=== PATIENT | female | born 1985 | race African-American/Black ===

== ENCOUNTER 2021-10-27 09:28 | Emergency (ER) | payer BC ==
[2021-10-27] MEDS ORDERED: Ondansetron PF 4 MG/2 ML Vial ONE (10:26)
[2021-10-27 10:33] LABS: #Basophils 0.1 10x3/uL (0.0-0.2); #Monocytes 0.7 10x3/uL (0.0-1.1); #Neutrophils 7.1 10x3/uL (1.5-8.4); %Basophils 0.9 % (0.0-2.0); %Eosinophils 0.3 % (0.0-6.0); %Lymphocytes 11.6 % (18.0-47.0); %Monocytes 7.6 % (0.0-10.0); %Neutrophils 79.2 % (40.0-75.0); Hemoglobin 11.2 g/dL (12.0-15.5); Mean Corpuscular HGB CONC 34.6 g/dL (32.0-36.0); Mean Corpuscular Hemoglobin 27.4 pg (27.0-33.0); Mean Corpuscular Volume 79.2 fl (81.6-98.3); Mean Platelet Volume 10.5 fl (7.4-10.4); Platelet Count 262 10x3/uL (150-450); RBC Distribution Width 13.2 % (11.5-14.5); Red Blood Cell (RBC) Count 4.09 10x6/uL (3.90-5.03)
[2021-10-27 10:47] LABS: Actual Bicarbonate (HCO3v) 21 mEq/L (22-28); Base Excess -3.4 mEq/L (-2.0 to +3.0); Calcium, Ionized (venous) 1.14 mmol/L (1.16-1.32); Chloride (VBG) 102 mmol/L (98-106); Hemoglobin (Hb) 12.1 g/dL (11.7-15.5); Potassium (VBG) 3.36 mmol/L (3.70-5.30); Puncture Site Other Site; RapidComm Collect By LAB; Sodium 132.9 mmol/L (133-146); pH (venous) 7.38 (7.32-7.43)
[2021-10-27 11:13] LABS: ALT (SGPT) 156 U/L (8-55); AST (SGOT) 75 U/L (5-34); Albumin 3.5 g/dL (3.5-5.0); Alkaline Phosphatase 106 U/L (40-110); Anion Gap 13 mmol/L (10-20); BUN (Urea Nitrogen) 9 mg/dL (7.0-18.7); Calc. Creatinine Clearance 0 mL/min (70-130); Calcium 8.6 mg/dL (7.8-10.44); Carbon Dioxide 22 mmol/L (22-29); Chloride 103 mmol/L (98-107); Globulin 2.6 g/dL (2.4-3.5); Glucose 192 mg/dL (70-105); Potassium 3.4 mmol/L (3.5-5.1); Protein, Total 6.1 g/dL (6.0-8.3); Sodium 135 mmol/L (136-145)
[2021-10-27 12:35] LABS: Bilirubin Neg (Negative); Blood, Urine Negative (Negative); Clarity Cloudy (Clear); Glucose, Urine (Dipstick) >=1000 mg/dL (Negative); Ketone, Urine Negative (Negative); Leukocyte Negative (Negative); Nitrite Negative (Negative); Protein, Urine (Dipstick) Negative (Neg-Trace); Specific Gravity, Urine 1.005 (1.002-1.036); Urobilinogen Normal mg/dL (Less than 2)
[2021-10-27] MEDS ORDERED: Promethazine HCl 25 MG/ML VIAL ONE (13:31)
== END 2021-10-27 14:48 | disposition home or self-care (01) ==
LOC: CSHERS 09:28
DX: O99.281 Endocrine, nutritional and metabolic diseases complicating pregnancy, first trimester (principal); E86.0 Dehydration; O21.9 Vomiting of pregnancy, unspecified; O10.011 Pre-existing essential hypertension complicating pregnancy, first trimester; Z3A.10 10 weeks gestation of pregnancy
CPT/HCPCS: 36415; 80053; 81003; 82010; 82805; 85025; 96374; 96375; J2405; J2550

== ENCOUNTER 2022-05-05 18:00 | Inpatient (IN) | payer BC ==
[2022-05-05] MEDS ORDERED: Lidocaine 1% (PF) 30 ML VIAL SC PRN (21:42)
[2022-05-05] MEDS ORDERED: Ondansetron PF 4 MG/2 ML Vial IVP PRN (21:42)
[2022-05-05] MEDS ORDERED: HYDROcodone/Acetaminophen 5/325 mg Tablet PO PRN ×2 (21:42)
[2022-05-05] MEDS ORDERED: Ibuprofen 800 MG TAB PO PRN (21:42)
[2022-05-05] MEDS ORDERED: Misoprostol 100 MCG TAB VAG SCH (21:42)
[2022-05-05] MEDS ORDERED: hydrALAZINE 20 MG/ML VIAL SLOW IVP PRN (21:42)
[2022-05-05] MEDS ORDERED: Promethazine HCl 25 MG/ML VIAL IM PRN (21:42)
[2022-05-05 21:56] VITALS: BMI 29.7
[2022-05-05] MEDS ORDERED: NS w/ Oxytocin 30 units 500 ML IV SCH ×2 (22:00)
[2022-05-05] MEDS: Lactated Ringer's 1,000 ML IV SCH (23:06)
[2022-05-05 23:18] LABS: Hemoglobin 11.1 g/dL (12.0-15.5); Mean Corpuscular HGB CONC 33.7 g/dL (32.0-36.0); Mean Corpuscular Hemoglobin 25.5 pg (27.0-33.0); Mean Corpuscular Volume 75.5 fl (81.6-98.3); Mean Platelet Volume 11.3 fl (7.4-10.4); Platelet Count 301 10x3/uL (150-450); RBC Distribution Width 13.9 % (11.5-14.5); Red Blood Cell (RBC) Count 4.36 10x6/uL (3.90-5.03); White Blood Cell (WBC) Count 5.9 10x3/uL (3.5-10.5)
[2022-05-05] MEDS: Misoprostol 100 MCG TAB VAG SCH (23:31)
[2022-05-05 23:46] LABS: SARS-CoV-2 NAA Rapid Test Not Detected (NotDetected)
[2022-05-06 01:48] LABS: Hep B Surf Ag Non-Reactive S/CO (NonReactive)
[2022-05-06 01:49] LABS: Syphilis Antibody Nonreactive (Nonreactive); Syphilis Antibody Index 0.03 S/CO (<1.00 Non-Reactive)
[2022-05-06] MEDS: Misoprostol 100 MCG TAB VAG SCH ×2 (02:57→06:48)
[2022-05-06] MEDS: Butorphanol Tartrate 1 MG/ML VIAL SLOW IVP PRN ×2 (02:58→06:49)
[2022-05-06] MEDS: Lactated Ringer's 1,000 ML IV SCH (06:41)
[2022-05-06] MEDS ORDERED: NIFEdipine XL 60 MG TAB PO SCH (06:45)
[2022-05-06] MEDS ORDERED: Fentanyl 2 mcg/Bup 0.1% Cadd 100 ML ONE (09:06)
[2022-05-06] MEDS ORDERED: Moisturizing Cream (Eucerin) 113 GM JAR TOP PRN (11:20)
[2022-05-06] MEDS ORDERED: diphenhydrAMINE 50 MG/ML VIAL IVP PRN (11:20)
[2022-05-06] MEDS ORDERED: Promethazine HCl 25 MG/ML VIAL IM PRN (11:20)
[2022-05-06] MEDS ORDERED: Naloxone HCl 0.4 mg/ml Vial IVP PRN ×2 (11:20)
[2022-05-06] MEDS ORDERED: Acetaminophen 325 MG TAB PO PRN (11:20)
[2022-05-06] MEDS ORDERED: ePHEDrine Sulfate 50 MG/10 ML VIAL SLOW IVP PRN (11:20)
[2022-05-06] MEDS ORDERED: Communication Order-Pharmacy FS SCH (11:30)
[2022-05-06] MEDS ORDERED: Lactated Ringer's 500 ML IV PRN (11:44)
[2022-05-06] MEDS: Ondansetron PF 4 MG/2 ML Vial IVP PRN (16:16)
[2022-05-06] MEDS: Fentanyl 2 mcg/Bupivacaine 0.1% Cassette 100 ML EPIDURAL SCH (18:19)
[2022-05-07] MEDS: Fentanyl 2 mcg/Bupivacaine 0.1% Cassette 100 ML EPIDURAL SCH (02:48)
[2022-05-07] MEDS ORDERED: Fentanyl 100 MCG/2 ML VIAL ONE (07:26)
[2022-05-07] MEDS ORDERED: Ondansetron PF 4 MG/2 ML Vial ONE (07:55)
[2022-05-07] MEDS: Ondansetron PF 4 MG/2 ML Vial IVP PRN (07:58)
[2022-05-07] MEDS: Misoprostol 200 MCG TAB ONE ×2 (08:42→15:42)
[2022-05-07] MEDS ORDERED: Misoprostol 200 MCG TAB PR SCH (09:00)
[2022-05-07] MEDS ORDERED: NIFEdipine XL 60 MG TAB PO SCH (09:00)
[2022-05-07] MEDS ORDERED: HYDROcodone/Acetaminophen 5/325 mg Tablet PO PRN ×2 (11:25)
[2022-05-07] MEDS ORDERED: Lanolin Ointment 7 GM TUBE TOP PRN (11:25)
[2022-05-07] MEDS ORDERED: Milk Of Magnesia 30 ML UDCUP PO PRN (11:25)
[2022-05-07] MEDS ORDERED: diphenhydrAMINE 25 MG CAP PO PRN (11:25)
[2022-05-07] MEDS ORDERED: NS w/ Oxytocin 30 units 500 ML IV SCH (11:25)
[2022-05-07] MEDS ORDERED: Bisacodyl 10 MG SUPP PR PRN (11:25)
[2022-05-07] MEDS ORDERED: hydrALAZINE 20 MG/ML VIAL SLOW IVP PRN (11:25)
[2022-05-07] MEDS ORDERED: Prenatal Vitamin 1 TAB PO SCH (12:00)
[2022-05-07] MEDS ORDERED: Docusate 100 MG CAP PO SCH (12:00)
[2022-05-07] MEDS ORDERED: Benzocaine-Menthol 82.5 ML CAN TOP PRN (12:41)
[2022-05-07] MEDS: Ibuprofen 800 MG TAB PO SCH ×2 (15:06→21:35)
[2022-05-07] MEDS: Misoprostol 100 MCG TAB VAG SCH ×2 (15:43→15:44)
[2022-05-07] MEDS: Lactated Ringer's 1,000 ML IV SCH ×2 (15:44→15:45)
[2022-05-07] MEDS: Ferrous Sulfate 325 MG TAB PO SCH (17:40)
[2022-05-07] MEDS: Docusate 100 MG CAP PO SCH (21:35)
[2022-05-08] MEDS: Ibuprofen 800 MG TAB PO SCH ×2 (06:04→14:03)
[2022-05-08] MEDS: Ferrous Sulfate 325 MG TAB PO SCH (08:56)
[2022-05-08] MEDS ORDERED: Prenatal Vitamin 1 TAB PO SCH (09:00)
[2022-05-08] MEDS: Docusate 100 MG CAP PO SCH (09:04)
[2022-05-08] MEDS ORDERED: Boostrix 0.5 ML (Tdap) VIAL (>/=7 yrs of age) IM ONE (11:25)
[2022-05-08 16:40] VITALS: BP 135/71; TEMP 98.7
== END 2022-05-08 18:50 | disposition home or self-care (01) | DRG 806 ==
LOC: CSHLD 21:25 → CSHPP 05-07 14:30 → CSHPED 05-07 14:45 → CSHPP 05-07 14:47
PROVIDERS: ADMIT Obstetrics & Gynecology; ATTEND Obstetrics & Gynecology
PROC: 3E0P7VZ Introduction of Hormone into Female Reproductive, Via Natural or Artificial Opening (ICD-10-PCS; 2022-05-06)
PROC: 0U7C7ZZ Dilation of Cervix, Via Natural or Artificial Opening (ICD-10-PCS; 2022-05-06)
PROC: 10E0XZZ Delivery of Products of Conception, External Approach (ICD-10-PCS; principal; 2022-05-07)
PROC: 0KQM0ZZ Repair Perineum Muscle, Open Approach (ICD-10-PCS; 2022-05-07)
DX: O24.425 Gestational diabetes mellitus in childbirth, controlled by oral hypoglycemic drugs (principal); O10.92 Unspecified pre-existing hypertension complicating childbirth; Z37.0 Single live birth; Z3A.37 37 weeks gestation of pregnancy; Z20.822 Contact with and (suspected) exposure to COVID-19; O26.893 Other specified pregnancy related conditions, third trimester; Z67.41 Type O blood, Rh negative; E88.81 Metabolic syndrome and other insulin resistance; O99.284 Endocrine, nutritional and metabolic diseases complicating childbirth; O70.1 Second degree perineal laceration during delivery; O62.2 Other uterine inertia; O36.5930 Maternal care for other known or suspected poor fetal growth, third trimester, not applicable or unspecified
CPT/HCPCS: 36415; 36416; 51702; 85027; 86780; 86850; 86870; 86900; 86901; 87340; J0595; J2405; J7120; U0002

== ENCOUNTER 2022-10-12 13:05 | Outpatient (CLI) | payer BC | END 2022-10-12 13:06 | disposition home or self-care (01) | LOC: CSHULT 13:05 | PROVIDERS: ATTEND Family Medicine | DX: R10.32 Left lower quadrant pain (principal) | CPT/HCPCS: 76856 ==

== ENCOUNTER 2022-10-19 14:59 | Outpatient (CLI) | payer BC ==
[~2022-10-19 14:59] MED LIST: Iopamidol 300 61% 100 ML VIAL FS ONE
== END 2022-10-19 15:00 | disposition home or self-care (01) ==
LOC: CSHCT 14:59
PROVIDERS: ATTEND Family Medicine
DX: R10.9 Unspecified abdominal pain (principal); N83.201 Unspecified ovarian cyst, right side
CPT/HCPCS: 74177; Q9967